=== PATIENT | female | born 1990 | race Hispanic/Latino ===

== ENCOUNTER 2018-03-13 19:38 | Emergency (ER) | payer OTHER ==
[~2018-03-13] VITALS: Ht 162.6 cm; Wt 79.7 kg
[~2018-03-13 19:38] MED LIST: DICLEGIS DR 101 EACH PO; ENDOCET 5-3251 EACH PO; IBUPROFEN800 MG PO; MIRALAX17 GM PO; PERCOCET 5/31 TABLET PO; ZOFRAN ODT4 MG PO; ZOFRAN4 MG PO; ZOFRAN8 MG PO
[2018-03-13 20:33] LABS: HEMATOCRIT 36.1 % (36.0-46.0); HEMOGLOBIN 12.4 G/DL (11.9-15.5); MCH 30.2 PG (29.0-34.0); MCHC 34.3 G/DL (30.0-36.0); PLATELET COUNT 299 K/uL (156-360); WHITE BLOOD COUNT 10.4 K/uL (4.1-10.2)
[2018-03-13 20:45] LABS: CHLORIDE 108 mEq/L (99-109); POTASSIUM 4.5 mEq/L (3.7-5.4); SODIUM 141 mEq/L (136-147)
[2018-03-13 20:46] LABS: GLUCOSE 94 mg/dL (70-99)
[2018-03-13 20:50] LABS: CREATININE 0.8 mg/dL (0.6-1.3); GFR ESTIMATE (CALCULATED) > 59 mL/min/
[2018-03-13 20:51] LABS: UREA NITROGEN (BUN) 9 mg/dL (9-23)
[2018-03-13 20:59] LABS: QUANTITATIVE HCG < 4.0 MIU/ML
[2018-03-13 21:32] LABS: APPEARANCE CLEAR ((CLEAR)); BILIRUBIN NEGATIVE; BLOOD NEGATIVE; COLOR YELLOW ((YELLOW)); GLUCOSE (STRIP) NEGATIVE; KETONES NEGATIVE; LEUKOCYTES NEGATIVE; NITRITE NEGATIVE; PROTEIN (STRIP) NEGATIVE; SPECIFIC GRAVITY 1.023 (1.000-1.030); UCUL ADDED? NO
[2018-03-13] MEDS ORDERED: NORCO 5/3251 TABLET PO (22:00)
[2018-03-13] MEDS ORDERED: NAPROXEN500 MG PO (22:00)
[2018-03-13 22:05] VITALS: BP 135/55
== END 2018-03-13 22:05 | disposition home or self-care (01) ==
LOC: EME 19:38
PROVIDERS: Physician Assistant
DX: N83.201 Unspecified ovarian cyst, right side (principal); N93.9 Abnormal uterine and vaginal bleeding, unspecified
CPT/HCPCS: 76856; 80048; 81003; 84702; 85027; 86850; 86870; 86900; 86901; 86905; 86920; 99281; 99285

== ENCOUNTER 2018-04-14 17:15 | Emergency (ER) | payer OTHER ==
[~2018-04-14] VITALS: Ht 162.6 cm; Wt 79.4 kg
[~2018-04-14 17:15] MED LIST changes: +NAPROXEN500 MG PO; +NORCO 5/3251 TABLET PO
[2018-04-14 18:01] LABS: HEMATOCRIT 38.5 % (36.0-46.0); HEMOGLOBIN 13.3 G/DL (11.9-15.5); MCH 30.2 PG (29.0-34.0); MCHC 34.5 G/DL (30.0-36.0); MCV 87.5 FL (83-99); PLATELET COUNT 324 K/uL (156-360); RBC DIS.WIDTH-CV 12.7 % (11.8-14.6); RBC DIS.WIDTH-SD 40.5 % (39-53); WHITE BLOOD COUNT 9.7 K/uL (4.1-10.2)
[2018-04-14 18:07] LABS: APPEARANCE SL.HAZY ((CLEAR)); BILIRUBIN NEGATIVE; BLOOD SMALL; COLOR YELLOW ((YELLOW)); GLUCOSE (STRIP) NEGATIVE; KETONES NEGATIVE; LEUKOCYTES NEGATIVE; NITRITE NEGATIVE; PROTEIN (STRIP) NEGATIVE; SPECIFIC GRAVITY 1.018 (1.000-1.030); UROBILINOGEN 0.2 MG/DL (0.2-1.0)
[2018-04-14 18:12] LABS: ALBUMIN 4.3 g/dL (3.2-4.8); CHLORIDE 104 mEq/L (99-109); POTASSIUM 4.3 mEq/L (3.7-5.4); SODIUM 140 mEq/L (136-147)
[2018-04-14 18:14] LABS: GLUCOSE 102 mg/dL (70-99)
[2018-04-14 18:15] LABS: TOTAL PROTEIN 7.8 g/dL (6.4-8.3)
[2018-04-14 18:16] LABS: TOTAL BILIRUBIN 0.2 mg/dL (0.0-1.0)
[2018-04-14 18:18] LABS: ALKALINE PHOSPHATASE 65 IU/L (3-129); CREATININE 0.8 mg/dL (0.6-1.3); GFR ESTIMATE (CALCULATED) > 59 mL/min/
[2018-04-14 18:19] LABS: UREA NITROGEN (BUN) 11 mg/dL (9-23)
[2018-04-14 18:20] LABS: AST (GOT) 15 IU/L (2-34)
[2018-04-14 18:21] LABS: ALT (GPT) 21 IU/L (3-49)
[2018-04-14 18:24] LABS: QUANTITATIVE HCG < 4.0 MIU/ML
[2018-04-14 18:33] LABS: BACTERIA RARE /HPF; EPITHELIAL CELLS 2+ /HPF; MUCUS TRACE /LPF; UCUL ADDED? NO; WHITE BLOOD CELLS 0-5 /HPF (0-5)
[2018-04-14] MEDS ORDERED: PERCOCET 5/31 TABLET PO (21:16)
[2018-04-14] MEDS ORDERED: TORADOL10 MG PO (21:16)
[2018-04-14 21:43] VITALS: BP 127/93
== END 2018-04-14 21:45 | disposition home or self-care (01) ==
LOC: EME 17:15
PROVIDERS: Physician Assistant
DX: R10.31 Right lower quadrant pain (principal); F32.9 Major depressive disorder, single episode, unspecified; F41.9 Anxiety disorder, unspecified; F17.200 Nicotine dependence, unspecified, uncomplicated
CPT/HCPCS: 74177; 76856; 80053; 81003; 84702; 85027; 99281; 99284; J1885; J2405; J3010